=== PATIENT | male | born 1955 | race Caucasian/White ===

== ENCOUNTER 2023-12-15 09:31 | Emergency (ER) | payer OTHER, MEDICAID ==
[~2023-12-15] VITALS: Ht 175.3 cm; Wt 104.3 kg
[2023-12-15 10:02] VITALS: BP_SYST 123; PULSE 85; RESP 18; TEMP 97.6; O2SAT 95
[2023-12-15 10:54] LABS: BASOPHILS # (AUTO) 0.1 K/uL (0.0-0.2); BASOPHILS % (AUTO) 0.9 % (0.0-2.0); EOSINOPHILS # (AUTO) 0.4 K/uL (0.0-0.4); EOSINOPHILS % (AUTO) 5.1 % (0.0-4.0); HEMATOCRIT 27.7 % (36-54); HEMOGLOBIN 9.4 g/dL (14.0-18.0); LYMPHOCYTES # (AUTO) 0.9 K/uL (1.0-5.5); LYMPHOCYTES % (AUTO) 12.3 % (20.5-51.5); MEAN CORPUSCULAR HEMOGLOBIN 30 pg (27-31); MEAN CORPUSCULAR HGB CONC 34 % (32-36); MEAN CORPUSCULAR VOLUME 88 fL (79.0-98.0); MONOCYTES # (AUTO) 0.6 K/uL (0.0-1.0); MONOCYTES % (AUTO) 7.7 % (1.7-9.3); NEUTROPHILS # (AUTO) 5.5 K/uL (1.8-7.7); PLATELET COUNT (AUTO) 140 K/uL (130-430); RED BLOOD CELL COUNT(AUTO) 3.14 MIL/uL (4.2-6.2); RED CELL DISTRIBUTION WIDTH 13.8 % (9.0-15.0); WHITE BLOOD COUNT (AUTO) 7.5 K/uL (4.8-10.8)
[2023-12-15 10:58] LABS: BILIRUBIN,URINE NEGATIVE (NEGATIVE); BLOOD, URINE 3+ (NEGATIVE); CLARITY/URINE SL CLOUDY (CLEAR); COLOR,URINE YELLOW (YELLOW); GLUCOSE,URINE 1+ (NEGATIVE); KETONES,URINE NEGATIVE (NEGATIVE); LEUKOCYTE ESTERASE ,URINE 3+ (NEGATIVE); NITRITE, URINE POSITIVE (NEGATIVE); PROTEIN URINE TRACE (NEGATIVE); UROBILINOGEN,URINE 0.2 (0.2-1.0)
[2023-12-15 11:04] LABS: BACTERIA,URINE FEW /HPF (None Seen); MUCUS,URINE 1+ /LPF (None Seen); WBC,URINE 80-100 /HPF (0-3)
[2023-12-15 11:06] LABS: ANION GAP 6 (5-15); CALCIUM 7.9 mg/dL (8.4-11.0); CARBON DIOXIDE 27 mmol/L (23-29); CHLORIDE 106 mmol/L (98-107); CREATININE 1.83 mg/dL (0.55-1.30); GFR AFRICAN AMERICAN 48 mL/min (>90); GLUCOSE 241 mg/dL (74-106); POTASSIUM 4.7 mmol/L (3.5-5.1); SODIUM SERUM 139 mmol/L (136-145); UREA NITROGEN, BLOOD 31 mg/dL (8-21)
[2023-12-15 11:09] LABS: GFR NON AFRICAN-AMERICAN 40 mL/min (>90)
[2023-12-15] MEDS: MORPHINE 4 MG INJ. 4 MG/ML VIAL IVP ONE (12:07)
[2023-12-15] MEDS ORDERED: BACL20TA PO (14:10)
[2023-12-15] MEDS ORDERED: MORP15TA7 PO (14:10)
[2023-12-15] MEDS ORDERED: LOSA25TA18 PO (14:10)
[2023-12-15] MEDS ORDERED: GABA-331 PO (14:10)
[2023-12-15] MEDS ORDERED: [UNRECOGNIZED DRUG - CODE] IV (14:10)
[2023-12-15] MEDS ORDERED: PRAZ1CAP5 PO (14:10)
[2023-12-15] MEDS ORDERED: BUPR-48 PO (14:10)
[2023-12-15] MEDS ORDERED: ATOR20TA64 PO (14:10)
[2023-12-15] MEDS ORDERED: INSU100V9 SUBCUT (14:10)
[2023-12-15] MEDS ORDERED: TRAZ-251 PO (14:10)
[2023-12-15] MEDS ORDERED: FINA5TAB11 PO (14:10)
[2023-12-15] MEDS ORDERED: PANT40TA45 PO (14:10)
[2023-12-15] MEDS ORDERED: TAMS0.4C96 PO (14:10)
[2023-12-15] MEDS ORDERED: SSNOVOLOG SUBCUT (14:10)
[2023-12-15] MEDS ORDERED: HYDR-3927 PO (14:10)
[2023-12-15] MEDS ORDERED: ASPI-1155 PO (14:10)
[2023-12-15] MEDS ORDERED: NITR-85 PO (16:31)
[2023-12-15] MEDS ORDERED: HYDR-3917 PO (16:31)
[2023-12-15 16:53] VITALS: BP_SYST 135; PULSE 87; RESP 16; TEMP 98.7; O2SAT 95
== END 2023-12-15 16:54 | disposition home or self-care (01) ==
LOC: MERGE 09:31 → SED 09:31
DX: N39.0 Urinary tract infection, site not specified (principal); G89.29 Other chronic pain; R07.89 Other chest pain; E11.9 Type 2 diabetes mellitus without complications; I10 Essential (primary) hypertension; Z79.4 Long term (current) use of insulin; Z91.041 Radiographic dye allergy status; Z79.899 Other long term (current) drug therapy
CPT/HCPCS: 36415; 71045; 71250-TC; 80048; 81000; 81001; 81015; 82948; 83605; 83880; 84484; 85025; 87040; 87086; 87186; 93005; 96365; 96375; 99285; J1956; J2270

== ENCOUNTER 2024-04-21 19:36 | Inpatient (IN) | payer OTHER ==
[~2024-04-21] VITALS: Ht 175.3 cm; Wt 80.7 kg
[~2024-04-21 19:36] MED LIST: ASPI-1155 PO; ATOR20TA64 PO; BACL20TA PO; BUPR-48 PO; FINA5TAB11 PO; GABA-331 PO; HYDR-3917 PO; HYDR-3927 PO; INSU100V9 SUBCUT; LOSA25TA18 PO; MORP15TA7 PO; NITR-85 PO; PANT40TA45 PO; PRAZ1CAP5 PO; SSNOVOLOG SUBCUT; TAMS0.4C96 PO; TRAZ-251 PO; [UNRECOGNIZED DRUG - CODE] IV
[2024-04-21 19:46] VITALS: BP_SYST 168; PULSE 123; RESP 16; TEMP 99.1; O2SAT 98
[2024-04-21 20:07] LABS: BASOPHILS % (AUTO) 0.4 % (0.0-2.0); EOSINOPHILS # (AUTO) 0.2 K/uL (0.0-0.4); EOSINOPHILS % (AUTO) 1.6 % (0.0-4.0); HEMATOCRIT 30.4 % (36-54); HEMOGLOBIN 10.6 g/dL (14.0-18.0); LYMPHOCYTES # (AUTO) 1.9 K/uL (1.0-5.5); LYMPHOCYTES % (AUTO) 19.5 % (20.5-51.5); MEAN CORPUSCULAR HEMOGLOBIN 30 pg (27-31); MEAN CORPUSCULAR HGB CONC 35 % (32-36); MEAN CORPUSCULAR VOLUME 86 fL (79.0-98.0); MONOCYTES # (AUTO) 0.9 K/uL (0.0-1.0); MONOCYTES % (AUTO) 9.2 % (1.7-9.3); NEUTROPHILS # (AUTO) 6.7 K/uL (1.8-7.7); NEUTROPHILS % (AUTO) 69.3 % (40.0-70.0); PLATELET COUNT (AUTO) 388 K/uL (130-430); RED BLOOD CELL COUNT(AUTO) 3.55 MIL/uL (4.2-6.2); RED CELL DISTRIBUTION WIDTH 14.4 % (9.0-15.0); WHITE BLOOD COUNT (AUTO) 9.7 K/uL (4.8-10.8)
[2024-04-21] MEDS: NACL 0.9% 1,000 ML IV ONE ×2 (20:24→21:44)
[2024-04-21 20:25] LABS: ALANINE AMINOTRANSFERASE 10 U/L (12-78); ALBUMIN 3.1 g/dL (3.4-4.8); ANION GAP 15 (5-15); ASPARTATE AMINOTRANSFERASE 16 U/L (10-37); CALCIUM 8.9 mg/dL (8.4-11.0); CARBON DIOXIDE 22 mmol/L (23-29); CHLORIDE 95 mmol/L (98-107); CREATININE 2.39 mg/dL (0.55-1.30); GFR AFRICAN AMERICAN 35 mL/min (>90); GLUCOSE 171 mg/dL (74-106); LIPASE 54 U/L (16-77); POTASSIUM 3.8 mmol/L (3.5-5.1); SODIUM SERUM 132 mmol/L (136-145); TOTAL BILIRUBIN 0.5 mg/dL (0.0-1.0); UREA NITROGEN, BLOOD 22 mg/dL (8-21)
[2024-04-21] MEDS: ONDANSETRON HCL 4 MG/2 ML VIAL IVP ONE (20:41)
[2024-04-21 20:44] LABS: GFR NON AFRICAN-AMERICAN 29 mL/min (>90)
[2024-04-21 21:07] LABS: BILIRUBIN,URINE NEGATIVE (NEGATIVE); BLOOD, URINE 3+ (NEGATIVE); COLOR,URINE YELLOW (YELLOW); GLUCOSE,URINE NEGATIVE (NEGATIVE); KETONES,URINE TRACE (NEGATIVE); LEUKOCYTE ESTERASE ,URINE 2+ (NEGATIVE); NITRITE, URINE NEGATIVE (NEGATIVE); PH,URINE 5.5 (5.0-8.0); PROTEIN URINE 2+ (NEGATIVE); UROBILINOGEN,URINE 0.2 (0.2-1.0)
[2024-04-21 21:21] LABS: BACTERIA,URINE MANY /HPF (None Seen); CLARITY/URINE CLOUDY (CLEAR); RBC,URINE 20-50 /HPF (0-3); WBC,URINE >100 /HPF (0-3)
[2024-04-21 21:22] LABS: MUCUS,URINE None Seen /LPF (None Seen); URINE AMORPHOUS URATE 3+ /HPF (None Seen)
[2024-04-21 21:23] LABS: COVID19 ANTIGEN SOFIA FIA NEGATIVE (NEGATIVE)
[2024-04-21 21:26] LABS: INFLUENZA TYPE A Negative (NEGATIVE); INFLUENZA TYPE B NEGATIVE (NEGATIVE)
[2024-04-21] MEDS: LORazepam 2 MG/ML VIAL IVP ONE (21:40)
[2024-04-21] MEDS ORDERED: ZOLP5TAB2 PO (21:48)
[2024-04-21] MEDS: ACETAMINOPHEN 500 MG TABLET PO ONE (22:52)
[2024-04-22] MEDS ORDERED: ACETAMINOPHEN 325 MG TABLET PO PRN ×2 (00:15→08:45)
[2024-04-22] MEDS: NACL 0.9% 1,000 ML IV SCH ×2 (00:15→08:45)
[2024-04-22] MEDS ORDERED: ZOLPIDEM TARTRATE 5 MG TABLET ONE (02:56)
[2024-04-22] MEDS: ZOLPIDEM TARTRATE 5 MG TABLET PO ONE (02:57)
[2024-04-22] MEDS: LEVOFLOXACIN 250 MG/D5W 50 ML IV SCH (06:29)
[2024-04-22] MEDS ORDERED: NALOXONE HCL 0.4 MG/ML AMP (NARCAN) IVP PRN ×2 (08:45)
[2024-04-22] MEDS ORDERED: BACLOFEN 10 MG TABLET PO PRN (08:45)
[2024-04-22] MEDS ORDERED: LORazepam 2 MG/ML VIAL IVP PRN (08:45)
[2024-04-22] MEDS ORDERED: LOSARTAN POTASSIUM 25 MG TABLET PO SCH (09:00)
[2024-04-22 09:53] LABS: ALBUMIN 2.4 g/dL (3.4-4.8); CALCIUM 8.3 mg/dL (8.4-11.0); CREATININE 2.03 mg/dL (0.55-1.30); POTASSIUM 4.2 mmol/L (3.5-5.1); TOTAL PROTEIN, SERUM 6.6 g/dL (6.4-8.3)
[2024-04-22 10:01] LABS: BASOPHILS % (AUTO) 0.3 % (0.0-2.0); EOSINOPHILS # (AUTO) 0.2 K/uL (0.0-0.4); EOSINOPHILS % (AUTO) 4.4 % (0.0-4.0); HEMATOCRIT 26.5 % (36-54); HEMOGLOBIN 8.8 g/dL (14.0-18.0); LYMPHOCYTES % (AUTO) 21.2 % (20.5-51.5); MEAN CORPUSCULAR HEMOGLOBIN 29 pg (27-31); MEAN CORPUSCULAR HGB CONC 33 % (32-36); MEAN CORPUSCULAR VOLUME 87 fL (79.0-98.0); MONOCYTES # (AUTO) 0.5 K/uL (0.0-1.0); NEUTROPHILS # (AUTO) 3.2 K/uL (1.8-7.7); NEUTROPHILS % (AUTO) 64.1 % (40.0-70.0); PLATELET COUNT (AUTO) 278 K/uL (130-430); RED BLOOD CELL COUNT(AUTO) 3.04 MIL/uL (4.2-6.2); RED CELL DISTRIBUTION WIDTH 14.5 % (9.0-15.0)
[2024-04-22 10:04] LABS: WHITE BLOOD COUNT (AUTO) 4.9 K/uL (4.8-10.8)
[2024-04-22 10:19] LABS: TOTAL BILIRUBIN 0.3 mg/dL (0.0-1.0)
[2024-04-22 10:24] VITALS: BP_SYST 136; PULSE 96; RESP 18; TEMP 98.1
[2024-04-22 11:12] VITALS: O2SAT 96
[2024-04-22 11:22] VITALS: BP_SYST 141; PULSE 91; RESP 16; TEMP 96.2; O2SAT 92
[2024-04-22] MEDS: ASPIRIN 81 MG TAB.CHEW PO SCH (12:07)
[2024-04-22] MEDS: buPROPion HCL 150 MG XL TAB PO SCH (12:07)
[2024-04-22] MEDS: FINASTERIDE 5 MG TABLET (PROSCAR) PO SCH (12:07)
[2024-04-22] MEDS: TAMSULOSIN HCL 0.4 MG CAP PO SCH (12:08)
[2024-04-22] MEDS: CARVEDILOL 12.5 MG TABLET (COREG) PO ONE (12:09)
[2024-04-22] MEDS: INSULIN REGULAR, HUMAN 100 UNITS/ML, 3 ML VIAL (humuLIN R) SUBCUT PRN (12:11)
[2024-04-22] MEDS: PANTOPRAZOLE SODIUM 40 MG TAB PO SCH (12:12)
[2024-04-22] MEDS: HYDROcodone/ACETAMIN 10-325 MG TAB PO PRN (12:24)
[2024-04-22] MEDS: ONDANSETRON HCL 4 MG/2 ML VIAL IVP PRN (12:25)
[2024-04-22 15:33] VITALS: BP_SYST 135; PULSE 76; RESP 16; TEMP 96.9; O2SAT 99
[2024-04-22] MEDS: GABAPENTIN 100 MG CAPSULE PO SCH (17:39)
[2024-04-22 20:00] VITALS: BP_SYST 159; PULSE 79; RESP 20; TEMP 98; O2SAT 100
[2024-04-22] MEDS: PRAZOSIN HCL 1 MG CAPSULE PO SCH (20:34)
[2024-04-22] MEDS: ZOLPIDEM TARTRATE 5 MG TABLET PO PRN (20:34)
[2024-04-22] MEDS: CARVEDILOL 12.5 MG TABLET (COREG) PO SCH (20:35)
[2024-04-22] MEDS ORDERED: ATORVASTATIN 20 MG TABLET PO SCH (21:00)
[2024-04-23] VITALS: BP_SYST 129; PULSE 72; RESP 18; TEMP 98; O2SAT 97
[2024-04-23 05:41] LABS: BASOPHILS % (AUTO) 0.5 % (0.0-2.0); EOSINOPHILS # (AUTO) 0.2 K/uL (0.0-0.4); EOSINOPHILS % (AUTO) 4.8 % (0.0-4.0); HEMATOCRIT 24.5 % (36-54); HEMOGLOBIN 8.3 g/dL (14.0-18.0); LYMPHOCYTES # (AUTO) 1.7 K/uL (1.0-5.5); LYMPHOCYTES % (AUTO) 34.8 % (20.5-51.5); MEAN CORPUSCULAR HEMOGLOBIN 29 pg (27-31); MEAN CORPUSCULAR HGB CONC 34 % (32-36); MEAN CORPUSCULAR VOLUME 87 fL (79.0-98.0); MONOCYTES # (AUTO) 0.4 K/uL (0.0-1.0); MONOCYTES % (AUTO) 7.9 % (1.7-9.3); NEUTROPHILS # (AUTO) 2.5 K/uL (1.8-7.7); PLATELET COUNT (AUTO) 234 K/uL (130-430); RED BLOOD CELL COUNT(AUTO) 2.81 MIL/uL (4.2-6.2); RED CELL DISTRIBUTION WIDTH 14.3 % (9.0-15.0); WHITE BLOOD COUNT (AUTO) 4.9 K/uL (4.8-10.8)
[2024-04-23 06:48] LABS: CALCIUM 8.2 mg/dL (8.4-11.0); CREATININE 1.84 mg/dL (0.55-1.30); PHOSPHORUS 3.8 mg/dL (2.7-4.5); POTASSIUM 4.2 mmol/L (3.5-5.1)
[2024-04-23 08:00] VITALS: BP_SYST 152; PULSE 85; RESP 16; TEMP 97.8; O2SAT 99
[2024-04-23 09:15] VITALS: O2SAT 99
[2024-04-23] MEDS: ATORVASTATIN 20 MG TABLET PO SCH (09:51)
[2024-04-23] MEDS ORDERED: LEVOFLOXACIN 250 MG/D5W 50 ML IV SCH (11:00)
[2024-04-23 19:00] VITALS: O2SAT 99
[2024-04-23 20:00] VITALS: BP_SYST 156; PULSE 75; RESP 20; TEMP 98; O2SAT 99
[2024-04-24] VITALS: BP_SYST 147; PULSE 71; RESP 19; TEMP 97.7; O2SAT 98
[2024-04-24 06:11] LABS: BASOPHILS % (AUTO) 0.5 % (0.0-2.0); EOSINOPHILS # (AUTO) 0.3 K/uL (0.0-0.4); EOSINOPHILS % (AUTO) 5.2 % (0.0-4.0); HEMATOCRIT 26.7 % (36-54); HEMOGLOBIN 9.1 g/dL (14.0-18.0); LYMPHOCYTES # (AUTO) 1.7 K/uL (1.0-5.5); LYMPHOCYTES % (AUTO) 27.9 % (20.5-51.5); MEAN CORPUSCULAR HEMOGLOBIN 30 pg (27-31); MEAN CORPUSCULAR HGB CONC 34 % (32-36); MEAN CORPUSCULAR VOLUME 87 fL (79.0-98.0); MONOCYTES # (AUTO) 0.5 K/uL (0.0-1.0); MONOCYTES % (AUTO) 8.7 % (1.7-9.3); NEUTROPHILS # (AUTO) 3.6 K/uL (1.8-7.7); NEUTROPHILS % (AUTO) 57.7 % (40.0-70.0); PLATELET COUNT (AUTO) 257 K/uL (130-430); RED BLOOD CELL COUNT(AUTO) 3.08 MIL/uL (4.2-6.2); RED CELL DISTRIBUTION WIDTH 14.2 % (9.0-15.0); WHITE BLOOD COUNT (AUTO) 6.3 K/uL (4.8-10.8)
[2024-04-24 06:50] LABS: CALCIUM 8.5 mg/dL (8.4-11.0); CREATININE 1.8 mg/dL (0.55-1.30); PHOSPHORUS 3.5 mg/dL (2.7-4.5); POTASSIUM 4.3 mmol/L (3.5-5.1)
[2024-04-24 07:40] VITALS: BP_SYST 118; PULSE 82; RESP 18; TEMP 98.4; O2SAT 98
[2024-04-24 08:04] LABS: ERYTHROCYTE SEDIMENTATION RATE 31 MM/HR (0-15)
[2024-04-24 10:55] VITALS: O2SAT 98
[2024-04-24] MEDS: HYDROcodone/ACETAMIN 5-325 MG TAB (NORCO/ VICODIN) PO PRN (12:28)
[2024-04-24 12:50] VITALS: BP_SYST 153; PULSE 78; RESP 18; TEMP 97.5; O2SAT 100
[2024-04-24 16:13] VITALS: BP_SYST 151; PULSE 72; RESP 18; TEMP 98.2; O2SAT 100
[2024-04-24 20:10] VITALS: BP_SYST 162; RESP 18; TEMP 98.3; O2SAT 100
[2024-04-24] MEDS: MEROPENEM 1 GM in NS 100 ML IV SCH (21:58)
[2024-04-25 00:25] VITALS: BP_SYST 157; PULSE 81; RESP 18; TEMP 98.2; O2SAT 97
[2024-04-25] MEDS: traZODone HCL 50 MG TABLET (DESYREL) PO PRN (00:39)
[2024-04-25 07:00] VITALS: O2SAT 98
[2024-04-25 07:27] LABS: BASOPHILS % (AUTO) 0.6 % (0.0-2.0); EOSINOPHILS # (AUTO) 0.2 K/uL (0.0-0.4); HEMATOCRIT 24.5 % (36-54); HEMOGLOBIN 8.4 g/dL (14.0-18.0); LYMPHOCYTES # (AUTO) 1.3 K/uL (1.0-5.5); LYMPHOCYTES % (AUTO) 24.6 % (20.5-51.5); MEAN CORPUSCULAR HEMOGLOBIN 29 pg (27-31); MEAN CORPUSCULAR HGB CONC 34 % (32-36); MEAN CORPUSCULAR VOLUME 86 fL (79.0-98.0); MONOCYTES # (AUTO) 0.4 K/uL (0.0-1.0); MONOCYTES % (AUTO) 7.7 % (1.7-9.3); NEUTROPHILS # (AUTO) 3.4 K/uL (1.8-7.7); NEUTROPHILS % (AUTO) 63.1 % (40.0-70.0); PLATELET COUNT (AUTO) 243 K/uL (130-430); RED BLOOD CELL COUNT(AUTO) 2.85 MIL/uL (4.2-6.2); RED CELL DISTRIBUTION WIDTH 14.1 % (9.0-15.0); WHITE BLOOD COUNT (AUTO) 5.5 K/uL (4.8-10.8)
[2024-04-25 07:51] LABS: ALBUMIN 2.2 g/dL (3.4-4.8); CALCIUM 8.1 mg/dL (8.4-11.0); CREATININE 1.8 mg/dL (0.55-1.30); ERYTHROCYTE SEDIMENTATION RATE 30 MM/HR (0-15); PHOSPHORUS 3.7 mg/dL (2.7-4.5); POTASSIUM 4.2 mmol/L (3.5-5.1); TOTAL BILIRUBIN 0.1 mg/dL (0.0-1.0); TOTAL PROTEIN, SERUM 6.1 g/dL (6.4-8.3)
[2024-04-25 12:50] VITALS: BP_SYST 134; PULSE 77; RESP 16; TEMP 98.7; O2SAT 98
[2024-04-25 16:33] VITALS: BP_SYST 162; PULSE 72; RESP 16; TEMP 97.8; O2SAT 100
[2024-04-25 19:00] VITALS: BP_SYST 150; PULSE 74; RESP 16; TEMP 97.6; O2SAT 96; O2SAT 98
[2024-04-25 20:00] VITALS: BP_SYST 150; PULSE 74; RESP 16; TEMP 97.6; O2SAT 98
[2024-04-26 00:22] VITALS: BP_SYST 152; PULSE 79; RESP 18; TEMP 98; O2SAT 98
[2024-04-26 06:38] LABS: BASOPHILS % (AUTO) 0.6 % (0.0-2.0); EOSINOPHILS # (AUTO) 0.2 K/uL (0.0-0.4); HEMATOCRIT 24.3 % (36-54); HEMOGLOBIN 8.4 g/dL (14.0-18.0); LYMPHOCYTES # (AUTO) 1.5 K/uL (1.0-5.5); LYMPHOCYTES % (AUTO) 26.5 % (20.5-51.5); MEAN CORPUSCULAR HEMOGLOBIN 30 pg (27-31); MEAN CORPUSCULAR HGB CONC 35 % (32-36); MEAN CORPUSCULAR VOLUME 86 fL (79.0-98.0); MONOCYTES # (AUTO) 0.5 K/uL (0.0-1.0); MONOCYTES % (AUTO) 8.7 % (1.7-9.3); NEUTROPHILS # (AUTO) 3.5 K/uL (1.8-7.7); NEUTROPHILS % (AUTO) 60.2 % (40.0-70.0); PLATELET COUNT (AUTO) 231 K/uL (130-430); RED BLOOD CELL COUNT(AUTO) 2.81 MIL/uL (4.2-6.2); WHITE BLOOD COUNT (AUTO) 5.8 K/uL (4.8-10.8)
[2024-04-26 07:00] VITALS: O2SAT 96
[2024-04-26 07:23] LABS: CALCIUM 8.2 mg/dL (8.4-11.0); CREATININE 1.86 mg/dL (0.55-1.30); PHOSPHORUS 3.5 mg/dL (2.7-4.5); POTASSIUM 4.2 mmol/L (3.5-5.1)
[2024-04-26 07:41] LABS: ERYTHROCYTE SEDIMENTATION RATE 22 MM/HR (0-15)
[2024-04-26 08:00] VITALS: BP_SYST 146; RESP 16; TEMP 97.4; O2SAT 96
[2024-04-26] MEDS: CARVEDILOL 25 MG TABLET (COREG) PO ONE (11:01)
[2024-04-26 12:07] VITALS: BP_SYST 151; PULSE 83; RESP 16; TEMP 98.7; O2SAT 99
[2024-04-26 17:39] VITALS: BP_SYST 150; PULSE 78; RESP 17; TEMP 97.9; O2SAT 100
[2024-04-26 20:01] VITALS: BP_SYST 114; PULSE 88; RESP 18; TEMP 98; O2SAT 100; O2SAT 96
[2024-04-26] MEDS: CARVEDILOL 25 MG TABLET (COREG) PO SCH (21:00)
[2024-04-27] VITALS (7 sets, daily range): BP systolic 133–147; PULSE 76–89; RESP 18–19; TEMP 97.7–98.4; O2SAT 96–99
== END 2024-04-27 17:15 | DRG 872 ==
LOC: SED 19:36 → STU 04-22 00:09 → SMU 04-23 13:59
PROVIDERS: ADMIT Preventive Medicine Preventive Medicine/Occupational Environmental Medicine; ATTEND Specialist
DX: A41.9 Sepsis, unspecified organism (principal); N17.9 Acute kidney failure, unspecified; N39.0 Urinary tract infection, site not specified; Z16.12 Extended spectrum beta lactamase (ESBL) resistance; Z16.24 Resistance to multiple antibiotics; D64.9 Anemia, unspecified; E83.51 Hypocalcemia; Z20.822 Contact with and (suspected) exposure to COVID-19; B96.20 Unspecified Escherichia coli [E. coli] as the cause of diseases classified elsewhere; I20.9 Angina pectoris, unspecified; G47.00 Insomnia, unspecified; F41.9 Anxiety disorder, unspecified; E88.09 Other disorders of plasma-protein metabolism, not elsewhere classified; E11.65 Type 2 diabetes mellitus with hyperglycemia; E78.5 Hyperlipidemia, unspecified; E11.22 Type 2 diabetes mellitus with diabetic chronic kidney disease; N40.1 Benign prostatic hyperplasia with lower urinary tract symptoms; N18.9 Chronic kidney disease, unspecified; M10.9 Gout, unspecified; K21.9 Gastro-esophageal reflux disease without esophagitis; I12.9 Hypertensive chronic kidney disease with stage 1 through stage 4 chronic kidney disease, or unspecified chronic kidney disease; Z79.4 Long term (current) use of insulin; Z79.82 Long term (current) use of aspirin; Z79.899 Other long term (current) drug therapy; Z88.8 Allergy status to other drugs, medicaments and biological substances
CPT/HCPCS: 36415; 71045; 78579; 78580; 80048; 80053; 81000; 81001; 81015; 82948; 83605; 83690; 83735; 84100; 84484; 85025; 85379; 85651; 87086; 87186; 93005; 93306; 99291; A9539; A9540; G0378; J1956; J2060; J2185; J2405

== ENCOUNTER 2024-06-02 15:29 | Emergency (ER) | payer OTHER ==
[~2024-06-02] VITALS: Ht 175.3 cm; Wt 88.5 kg
[~2024-06-02 15:29] MED LIST changes: -HYDR-3927 PO; -MORP15TA7 PO; -NITR-85 PO; +ZOLP5TAB2 PO
[2024-06-02 15:41] VITALS: BP_SYST 137; PULSE 85; RESP 22; TEMP 98.3; O2SAT 98
[2024-06-02 16:18] LABS: BASOPHILS % (AUTO) 0.7 % (0.0-2.0); EOSINOPHILS # (AUTO) 0.1 K/uL (0.0-0.4); EOSINOPHILS % (AUTO) 2.3 % (0.0-4.0); HEMATOCRIT 30.1 % (36-54); HEMOGLOBIN 10.3 g/dL (14.0-18.0); LYMPHOCYTES # (AUTO) 1.3 K/uL (1.0-5.5); LYMPHOCYTES % (AUTO) 20.4 % (20.5-51.5); MEAN CORPUSCULAR HEMOGLOBIN 29 pg (27-31); MEAN CORPUSCULAR HGB CONC 34 % (32-36); MEAN CORPUSCULAR VOLUME 86 fL (79.0-98.0); MONOCYTES # (AUTO) 0.5 K/uL (0.0-1.0); MONOCYTES % (AUTO) 7.7 % (1.7-9.3); NEUTROPHILS # (AUTO) 4.4 K/uL (1.8-7.7); NEUTROPHILS % (AUTO) 68.9 % (40.0-70.0); PLATELET COUNT (AUTO) 316 K/uL (130-430); RED BLOOD CELL COUNT(AUTO) 3.51 MIL/uL (4.2-6.2); RED CELL DISTRIBUTION WIDTH 14.8 % (9.0-15.0); WHITE BLOOD COUNT (AUTO) 6.4 K/uL (4.8-10.8)
[2024-06-02 16:45] LABS: ALANINE AMINOTRANSFERASE 14 U/L (12-78); ALBUMIN 3.4 g/dL (3.4-4.8); ANION GAP 9 (5-15); ASPARTATE AMINOTRANSFERASE 14 U/L (10-37); CALCIUM 9.2 mg/dL (8.4-11.0); CARBON DIOXIDE 25 mmol/L (23-29); CHLORIDE 100 mmol/L (98-107); CREATININE 2.27 mg/dL (0.55-1.30); GFR AFRICAN AMERICAN 37 mL/min (>90); GLUCOSE 172 mg/dL (74-106); POTASSIUM 4.5 mmol/L (3.5-5.1); SODIUM SERUM 134 mmol/L (136-145); TOTAL BILIRUBIN 0.5 mg/dL (0.0-1.0); TOTAL PROTEIN, SERUM 8.2 g/dL (6.4-8.3); UREA NITROGEN, BLOOD 42 mg/dL (8-21)
[2024-06-02 16:49] LABS: PROTHROMBIN TIME 10.6 SECS (9.5-12.5)
[2024-06-02 16:52] LABS: GFR NON AFRICAN-AMERICAN 31 mL/min (>90)
[2024-06-02 16:57] LABS: BILIRUBIN,DIRECT 0.1 mg/dL (0.0-0.3); CREATINE KINASE, TOTAL 95 U/L (39-308); FREE T4 (FREE THYROXINE) 1.2 ng/dl (0.8-1.5); THYROID STIMULATING HORMONE 1.14 uIu/mL (0.36-3.74)
[2024-06-02 17:16] LABS: ACETONE, SERUM NEGATIVE (NEGATIVE)
[2024-06-02] MEDS ORDERED: ZOLP10TA2 PO (17:57)
[2024-06-02] MEDS ORDERED: ALPR0.5T PO (17:57)
[2024-06-02 18:00] VITALS: BP_SYST 137; PULSE 85; RESP 22; TEMP 98.3; O2SAT 98
[2024-06-02] MEDS: ALPRAZolam 0.25 MG TABLET PO ONE (18:33)
== END 2024-06-02 18:01 | disposition home or self-care (01) ==
LOC: SED 15:29
DX: I12.9 Hypertensive chronic kidney disease with stage 1 through stage 4 chronic kidney disease, or unspecified chronic kidney disease (principal); E11.22 Type 2 diabetes mellitus with diabetic chronic kidney disease; N18.9 Chronic kidney disease, unspecified; R53.1 Weakness; G47.00 Insomnia, unspecified; M79.672 Pain in left foot; R51.9 Headache, unspecified; Z87.440 Personal history of urinary (tract) infections; Z91.041 Radiographic dye allergy status; Z79.4 Long term (current) use of insulin; Z79.899 Other long term (current) drug therapy; Z79.82 Long term (current) use of aspirin
CPT/HCPCS: 70450-TC; 71045; 80048; 80076; 82009; 82550; 83605; 84439; 84443; 84484; 85025; 85610; 85730; 93005; 99285